=== PATIENT | female | born 1975 | race Caucasian/White ===

== ENCOUNTER 2023-07-20 16:04 | Emergency (ER) | payer OTHER, SELFPAY ==
--- NOTE | ~2023-07-20 | XR_ITS ---
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 RESULT: Lines, tubes, and devices: None. Lungs and pleura: Mild diffuse reticular opacities with cuffing. Cardiomediastinal silhouette: Stable. Other: No acute osseous or upper abdominal finding. IMPRESSION: Pulmonary opacities may represent bronchiolitis, as can be seen with atypical infection, asthma, aspi ration, and small airways disease. Reviewed, dictated and finalized at location K. RTING MACHINE OPERATOR IMPRESSION: Pulmonary opacities may represent bronchiolitis, as can be seen with atypical i nfection, asthma, aspiration, and small airways disease.
[2023-07-20 16:07] VITALS: BP 163/83; PULSE 93; RESP 20; TEMP 36.6; O2SAT 100
[2023-07-20 16:30] VITALS: O2SAT 97
[2023-07-20 17:41] VITALS: BP 150/104; PULSE 95; RESP 20; O2SAT 97
--- NOTE | 2023-07-20 18:27 | ED_ITS ---
HPI - URI/Sore Throat General Chief Complaint: Upper Respiratory Infection Stated Complaint: COVID+ 07/17/23 Time Seen by Provider: 07/20/23 16:22 History of Present Illness HPI Narrative: patient diagnosed with COVID 2 days ago, she presented here because she is still feeling quite congested and wants to make sure she does not have a pneumonia. No nausea vomiting. Overall feeling better compared to yesterday. Review of Systems Review of Systems: CONST: No fever. HEENT: Congestion C/V: No chest pain RESP: cough GI: no nausea or vomiting : No dysuria. M/S: No joint pain. SKIN: No rash. NEURO: [No focal numbness or weakness] PSYCH: [No depression] Exam Narrative: EXAMINATION OF ORGAN SYSTEMS/BODY AREAS: Constitutional: Vital signs per nursing GENERAL:[No acute distress, non-toxic appearing.] HEAD: Normal with no signs of head trauma. EYES: EOMI, conjunctiva normal ENT: Congestion LUNGS: Nonlabored breathing. CTAB HEART: [Regular rate and rhythm] ABD: [Soft], [nontender to palpation] EXT: Normal range of motion SKIN: [No rashes or lesions.] NEURO: [Alert and oriented x 3. No gross focal sensory or strength deficits.] PSYCH: Normal affect Course Vital Signs Vital signs: Vital Signs Temperature 98 F 07/20/23 16:07 Pulse Rate 93 07/20/23 16:07 Respiratory Rate 07/20/23 16:07 Blood Pressure 163/83 H 07/20/23 16:07 Pulse Oximetry 100 07/20/23 16:07 Oxygen Delivery Room Air 07/20/23 16:07 Temperature 98 F 07/20/23 16:07 Pulse Rate 95 07/20/23 17:41 Respiratory Rate 07/20/23 17:41 Blood Pressure 150/104 H 07/20/23 17:41 Pulse Oximetry 97 07/20/23 17:41 Oxygen Delivery Room Air 07/20/23 16:30 MDM - URI/Sore Throat MDM Narrative Medical decision making narrative: 48-year-old female recent diagnosed with COVID presents here concerned about pneumonia. No liver respirations, no fever here, clear to auscultation bilaterally, chest x-ray obtained consistent with likely viral illness without any focal consolidation on my own independent interpretation. Discussed this with the patient, will start her on Flonase for congestion, and have her follow- up with her primary care doctor and return to the ER as needed. Discharge Plan Discharge Clinical Impression: COVID-19 Patient Disposition: Home, Self-Care Condition: Stable Instructions: Antibiotic Form, COVID-19 (Coronavirus Disease 2019) (ED) Additional Instructions: Please follow up with your doctor; you can always return for any further issues. Prescriptions: New fluticasone propionate [Allergy Relief (fluticasone)] 50 mcg/actuation spray,suspension 1 spray intranasal DAILY Qty: 16 0RF Rx Instructions: administer into each nostril Follow-up/Referrals: Sandra silverio [Other]
== END 2023-07-20 17:42 | disposition home or self-care (01) ==
PROVIDERS: Emergency Provider Emergency Medicine
DX: U07.1 COVID-19 (principal); R91.8 Other nonspecific abnormal finding of lung field
CPT/HCPCS: 71045; 99283